=== PATIENT | male | born 1965 | race Hispanic/Latino ===

== ENCOUNTER 2021-09-07 09:11 | Emergency (ER) | payer OTHER ==
--- OUTSIDE RECORDS SUMMARY | 2021-09-07 09:14 | XMS REPORT | Continuity of Care Document ---
:1965 Author Organization [facility] t Address [address] [place] [address] Dr. Guzman [address] [place] [id number] Care Team Providers Name Role Phone Bui_Q Attending Clinician Unavailable Bui_Q_WAGDNU Attending Clinician Unavailable Bui_Q Admitting Clinician Unavailable Bui_Q_WAGDNU Admitting Clinician Unavailable Payers Payer Name Policy Type Policy Number Effective Date Expiration Date Radha BEE [place] - [id number] [facility] 4 ([facility]) Problems Condition Condition Condition Status Onset Resolution Last Treating Co mments Source Name Details Category Date Date Treatment Clinician Date Osteoarthr Osteoarthr Problem Active [facility] itis itis 9- Family 00:00: Practic 00 e History of History of Problem Active [facility] calculus Calculus 4- Family of kidney of Kidney 00:00: Prac tic 00 e Dyslipidem Dyslipidem Problem Active [facility] ia ia 6- Family 00:00: Practic 00 e Benign Benign Problem Active [facility] prostatic Prostatic 6-11 Fami ly hyperplasi Hyperplasi 00:00: Pr actic a without a without 00 e outflow Outflow obstructio Obstructio n n Diabetes Diabetes Problem Active [facility] mellitus Mellitus 2-26 Family 00:00: Practic 00 e Hypertensi Hypertensi Problem Active [facility] ve ve 2-26 Family disorder Disorder 00:00: Practi c 00 e Allergies, Adverse Reactions, Alerts This patient has no known allergies or adverse reactions. Social History Smoking Status Start Date Stop Date Source Never Smoker [facility] Medications Ordered Filled Start Stop Current Ordering Indication Dosage Frequency Signature Comments Components Source Medication Medication Date Date Medication? Clinician (SIG) Name Name atorvastati atorvastati No atorvastat [facility] n 10 mg n 10 mg in 10 mg Famil y tablet TAKE tablet TAKE tablet Practic 1 TABLET BY 1 TABLET BY TAKE 1 e MOUTH EVERY MOUTH EVERY TABLET BY DAY DAY MOUTH EVERY DAY lisinopril lisinopril No lisinopril [facility] 20 20 20 Family mg-hydrochl mg-hydrochl mg-hydroch Practic orothiazide orothiazide lorothiazi e 25 mg 25 mg de 25 mg tablet TAKE tablet TAKE tablet 1 TABLET BY 1 TABLET BY TAKE 1 MOUTH EVERY MOUTH EVERY TABLET BY DAY DAY MOUTH EVERY DAY meloxicam meloxicam No meloxicam [facility] 15 mg 15 mg 15 mg Family tablet TAKE tablet TAKE tablet Practic 1 TABLET BY 1 TABLET BY TAKE 1 e MOUTH EVERY MOUTH EVERY TABLET BY DAY DAY MOUTH NEEDED NEEDED EVERY DAY NEEDED metformin metformin No metformin [facility] 1,000 mg 1,000 mg 1,000 mg Fam vanessa tablet TAKE tablet TAKE tablet Practic 1 TABLET BY 1 TABLET BY TAKE 1 e MOUTH TWICE MOUTH TWICE TABLET BY A DAY A DAY MOUTH TWICE A DAY metoprolol metoprolol No 1 Q1D metoprolol [facility] succinate succinate succinate Family ER 25 mg ER 25 mg ER 25 mg Pra ctic tablet,exte tablet,exte tablet,ext e nded nded ended release 24 release 24 release 24 hr Take 1 hr Take 1 hr Take 1 tablet tablet tablet every day every day every day by oral by oral by oral route. route. route. tamsulosin tamsulosin No tamsulosin [facility] 0.4 mg 0.4 mg 0.4 mg Family capsule capsule capsule Practi c TAKE 1 TAKE 1 TAKE 1 e CAPSULE BY CAPSULE BY CAPSULE BY MOUTH EVERY MOUTH EVERY MOUTH DAY DAY EVERY DAY triamcinolo triamcinolo No triamcinol [facility] ne ne one Family acetonide acetonide acetonide Practic 0.1 % 0.1 % 0.1 % e dental dental dental paste APPLY paste APPLY paste A SMALL DAB A SMALL DAB APPLY A WITH A WITH A SMALL DAB COTTON TIP COTTON TIP WITH A 2 3 TIMES A 2 3 TIMES A COTTON TIP DAY DAY 2 3 TIMES NEEDED NEEDED A DAY NEEDED Immunizations Ordered Immunization Filled Immunization Date Status Commen ts Source Name Name COVID-19, mRNA, COVID-19, mRNA, 2021-06-18 Completed [facility] LNP-S, PF, 30 mcg/0.3 LNP-S, PF, 30 mcg/0.3 00:00:00 Practice mL dose mL dose ([email or web address] (Moo[employer]ella) zoster recombinant zoster recombinant 2021-05-09 Completed [facility] 16:54:03 Practice influenza, influenza, 2021-02-24 Completed [facility] recombinant, recombinant, 11:52:00 Practice quadrIvalent,injectab quadrIvalent,injectab le, preservative free le, preservative free zoster recombinant zoster recombinant 2021-02-24 Completed [facility] 11:51:00 Practice COVID-19 (SARS-COV-2) COVID-19 (SARS-COV-2) 2020-10-18 Completed [facility] vaccine, unspecified vaccine, unspecified 00:00:00 Practice COVID-19 (SARS-COV-2) COVID-19 (SARS-COV-2) 2020-09-16 Completed [facility] vaccine, unspecified vaccine, unspecified 00:00:00 Practice influenza, influenza, 2020-03-23 Completed [facility] injectable, injectable, 00:00:00 Practice quadrivalent quadrivalent influenza, influenza, 2019-02-16 Completed [facility] injectable, injectable, 00:00:00 Practice quadrivalent quadrivalent Tdap Tdap 2018-05-27 Completed [facility] 19:05:46 Practice influenza, influenza, 2018-02-16 Completed [facility] unspecified unspecified 00:00:00 Practice formulation formulation pneumococcal pneumococcal 2017-02-16 Completed [facility] polysaccharide PPV23 polysaccharide PPV23 00:00:00 Practice influenza, influenza, 2017-02-16 Completed [facility] unspecified unspecified 00:00:00 Practice formulation formulation Vital Signs Vital Name Observation Time Observation Value Comments Source BP Diastolic 2021-08-23 00:00:00 89 mm[Hg] [facility] Height 2021-08-23 00:00:00 67 [in_i] [facility] BMI (Body Mass 2021-08-23 00:00:00 31.5 kg/m2 [facility] BP Systolic 2021-08-23 00:00:00 150 mm[Hg] [facility] Body Weight 2021-08-23 00:00:00 201 [lb_av] [facility] BP Diastolic 2021-02-24 00:00:00 75 mm[Hg] [facility] Height 2021-02-24 00:00:00 67 [in_i] [facility] BMI (Body Mass 2021-02-24 00:00:00 30.2 kg/m2 [facility] BP Systolic 2021-02-24 00:00:00 132 mm[Hg] [facility] Body Weight 2021-02-24 00:00:00 193 [lb_av] [facility] BP Diastolic 2020-10-21 00:00:00 85 mm[Hg] [facility] Height 2020-10-21 00:00:00 67 [in_i] [facility] BMI (Body Mass 2020-10-21 00:00:00 30.9 kg/m2 [facility] BP Systolic 2020-10-21 00:00:00 161 mm[Hg] [facility] Body Weight 2020-10-21 00:00:00 197.3 [lb_av] [facility] BP Diastolic 2020-05-18 00:00:00 89 mm[Hg] [facility] Height 2020-05-18 00:00:00 67 [in_i] [facility] BMI (Body Mass 2020-05-18 00:00:00 30.9 kg/m2 [facility] BP Systolic 2020-05-18 00:00:00 154 mm[Hg] [facility] Body Weight 2020-05-18 00:00:00 197 [lb_av] [facility] Height 2020-01-27 00:00:00 67 [in_i] [facility] BP Diastolic 2019-07-15 00:00:00 79 mm[Hg] [facility] Height 2019-07-15 00:00:00 67 [in_i] [facility] BMI (Body Mass 2019-07-15 00:00:00 32.5 kg/m2 [facility] BP Systolic 2019-07-15 00:00:00 125 mm[Hg] [facility] Body Weight 2019-07-15 00:00:00 207.4 [lb_av] [facility] BP Diastolic 2018-12-30 00:00:00 72 mm[Hg] [facility] Height 2018-12-30 00:00:00 67 [in_i] [facility] BMI (Body Mass 2018-12-30 00:00:00 30.4 kg/m2 [facility] BP Systolic 2018-12-30 00:00:00 124 mm[Hg] [facility] Body Weight 2018-12-30 00:00:00 194 [lb_av] [facility] BP Diastolic 2018-09-16 00:00:00 60 mm[Hg] [facility] Height 2018-09-16 00:00:00 67 [in_i] [facility] BMI (Body Mass 2018-09-16 00:00:00 31 kg/m2 [facility] Index) Practice BP Systolic 2018-09-16 00:00:00 126 mm[Hg] [facility] Body Weight 2018-09-16 00:00:00 197.8 [lb_av] [facility] Procedures Procedure Date / Time Performed Performing Clinician [facility] e X-RAY OF ABDOMEN 1 2018-09-16 00:00:00 [facility] amil VIEW Practice Tooth Root Removal [facility] Practice Plan of Care Planned Activity Planned Date Details Comments Source Diagnostic Test 2021-08-23 hemoglobin A1C, [facility] mathew Pending 00:00:00 fingerstick [code = Practice hemoglobin A1C, fingerstick] Future Scheduled Test Your labs are normal [facility] except... 1. Your Practice Diabetes is controlled. Take your meds. I recommend low carb / sugar diet and walking. I will monitor. [code = Your labs are normal except... 1. Your Diabetes is controlled. Take your meds. I recommend low carb] Future Appointment 2022-02-21 Jose Juan Call, [address] [facility] 09:15:00 [place]; Practice [address], [place] [address] [facility] Encounters Start End Encounter Admission Attending Care Care Encounter Source Date/Time Date/Time Type Type Clinicians Facility Department ID 2021-08-23 2021-08-23 Outpatient Bui_Q VFP VFP [id number] [facility] 11:15:00 11:15:00 [id number] Family Practic e 2021-08-23 2021-08-23 Outpatient Bui_Q VFP VFP [id number] [facility] 11:15:00 11:15:00 [id number] Family Practic e 2021-08-23 2021-08-23 Jose Juan Marquez VFP [place] - [id number] [facility] 00:00:00 00:00:00 MD Jakub: [facility] [address] Medical - Practi c Shadow Dora ascencio [facility], [address], [place] [address] , Ph. 2021-06-07 2021-06-07 Outpatient Bui_Q VFP VFP [id number] [facility] 11:15:00 11:15:00 [id number] Family Practic e 2021-06-07 2021-06-07 Outpatient Bui_Q VFP VFP [id number] [facility] 11:15:00 11:15:00 [id number] Family Practic e 2021-05-21 2021-05-21 Outpatient Bui_Q VFP VFP [id number] [facility] 05:20:00 05:20:00 [id number] Family Practic e 2021-05-04 2021-05-04 Outpatient Bui_Q VFP VFP [facility] 08:59:00 08:59:00 [id number] Family Practic e 2021-05-03 2021-05-03 Outpatient Bui_Q VFP VFP [facility] 10:12:00 10:12:00 [id number] Family Practic e 2021-05-03 2021-05-03 Emily O VFP [place] - [id number] [facility]:00:00 [facility] [place] [id number] Medical - Prac tic Shadow Dora ascencio [facility], [facility] [address] [address] , Ph. 2021-04-16 2021-04-16 Outpatient Bui_Q_WAGDN VFP VFP [id number] [facility] 03:32:00 03:32:00 U [id number] Family Practic e 2021-04-16 2021-04-16 Outpatient Bui_Q VFP VFP [id number]- [facility] 03:32:00 03:32:00 [id number] Family Practic e 2021-03-12 2021-03-12 Outpatient Bui_Q VFP VFP [id number] [facility] 03:00:00 03:00:00 [id number] Family Practic e 2021-03-12 2021-03-12 Outpatient Bui_Q_WAG VFP VFP [id number] [facility] 03:00:00 03:00:00 [id number] Family Practic e 2021-03-01 2021-03-01 Outpatient Bui_Q_WAG VFP VFP [id number] [facility] 05:07:00 05:07:00 [id number] Family Practic e 2021-02-24 2021-02-24 Outpatient Bui_Q VFP VFP [facility] 11:51:00 11:51:00 [id number] Family Practic e 2021-02-24 2021-02-24 Jose Juan Marquez VFP [place] - [id number] [facility] 00:00:00 00:00:00 MD Jakub: [facility] [address] Medical - Practi c Shadow VM_HOU_Shad e [place] [facility], [address], [place] [address] , Ph. 2021-01-20 2021-01-20 Outpatient Bui_Q_WAG VFP VFP [id number] [facility] 01:17:00 01:17:00 [id number] Family Practic e 2021-01-20 2021-01-20 Outpatient Bui_Q VFP VFP [facility] 01:17:00 01:17:00 [id number] Family Practic e 2021-01-20 2021-01-20 Outpatient Bui_Q VFP VFP [facility] 01:17:00 01:17:00 [id number] Family Practic e 2020-12-16 2020-12-16 Outpatient Bui_Q_WAG VFP VFP [id number] [facility] 02:10:00 02:10:00 [id number] Family Practic e 2020-11-12 2020-11-12 Outpatient Bui_Q_WAG VFP VFP [id number] [facility] 01:02:00 01:02:00 [id number] Family Practic e 2020-10-26 2020-10-26 Outpatient Bui_Q_WAG VFP VFP [id number] [facility] 04:57:00 04:57:00 [id number] Family Practic e 2020-10-26 2020-10-26 Outpatient Bui_Q VFP VFP [id number]- [facility] 04:57:00 04:57:00 [id number] Family Practic e 2020-10-26 2020-10-26 Outpatient Bui_Q VFP VFP [facility] 04:57:00 04:57:00 [id number] Family Practic e 2020-10-25 2020-10-25 Outpatient Bui_Q VFP VFP [id number] [facility] 07:36:00 07:36:00 [id number] Family Practic e 2020-10-21 2020-10-21 Outpatient Bui_Q VFP VFP [facility] 01:43:00 01:43:00 [id number] Family Practic e 2020-10-21 2020-10-21 Jose Juan Marquez VFP [place] - [id number] [facility] 00:00:00 00:00:00 MD Jakub: [facility] [address] Medical - Practi c Shadow VM_HOU_Shad e [place] ow [facility], [address], [place] [address] , Ph. 2020-08-17 2020-08-17 Outpatient Bui_Q_WAG VFP VFP [id number] [facility] 01:02:00 01:02:00 [id number] Family Practic e 2020-08-17 2020-08-17 Outpatient Bui_Q_WAG VFP VFP [id number] [facility] 01:02:00 01:02:00 [id number] Family Practic e 2020-07-13 2020-07-13 Outpatient Bui_Q_WAG VFP VFP [id number] [facility] 01:03:00 01:03:00 [id number] Family Practic e 2020-06-08 2020-06-08 Outpatient Bui_Q_WAG VFP VFP [id number] [facility] 01:03:00 01:03:00 [id number] Family Practic e 2020-05-20 2020-05-20 Outpatient Bui_Q_WAG VFP VFP [id number] 7202 [facility] 07:36:00 07:36:00 [id number] Family Practic e 2020-05-18 2020-05-18 Outpatient Bui_Q VFP VFP [id number] [facility] 10:26:00 10:26:00 [id number] Family Practic e 2020-05-18 2020-05-18 Porchae B VFP [place] - [id number] [facility] 00:00:00 00:00:00 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 [address], ([facility]) [place] [address] , Ph. 2020-05-04 2020-05-04 Outpatient Bui_Q_WAG VFP VFP [id number] [facility] 01:02:00 01:02:00 [id number] Family Practic e 2020-05-04 2020-05-04 Outpatient Bui_Q VFP VFP [id number] [facility] 01:02:00 01:02:00 [id number] Family Practic e 2020-03-30 2020-03-30 Outpatient Bui_Q_WAG VFP VFP [id number] [facility] 01:03:00 01:03:00 [id number] Family Practic e 2020-03-30 2020-03-30 Outpatient Bui_Q_WAG VFP VFP [id number] [facility] 01:03:00 01:03:00 [id number] Family Practic e 2020-02-23 2020-02-23 Outpatient Bui_Q_WAG VFP VFP [id number] [facility] 11:48:00 11:48:00 [id number] Family Practic e 2020-01-29 2020-01-29 Outpatient Bui_Q_WAG VFP VFP [id number] [facility] 07:49:00 07:49:00 [id number] Family Practic e 2020-01-29 2020-01-29 Outpatient Bui_Q VFP VFP [id number] [facility] 07:49:00 07:49:00 [id number] Family Practic e 2020-01-27 2020-01-27 Outpatient Bui_Q_WAG VFP VFP [id number] [facility] 02:03:00 02:03:00 [id number] Family Practic e 2020-01-27 2020-01-27 Jose Juan Marquez VFP [place] - [id number] [address] [place] [address] 00:00:00 00:00:00 MD Jakub: [facility] Famil y 6122 Medical - Practi c [facility] [address], ([facility]) [place] [address] , Ph. 2019-07-18 2019-07-18 Outpatient Bui_Q VFP VFP [id number] [facility] 02:00:00 02:00:00 [id number] Family Practic e 2019-07-18 2019-07-18 Outpatient Bui_Q VFP VFP [id number] [facility] 02:00:00 02:00:00 [id number] Family Practic e 2019-07-18 2019-07-18 Outpatient Bui_Q_WAG VFP VFP [id number] [facility] 02:00:00 02:00:00 [id number] Family Practic e 2019-07-15 2019-07-15 Outpatient Bui_Q_WAG VFP VFP [id number] [facility] 02:08:00 02:08:00 [id number] Family Practic e 2019-07-15 2019-07-15 Jose Juan Marquez VFP [place] - [id number] [facility] 00:00:00 00:00:00 MD Jakub: [facility] Famil y 6122 [facility] [address], ([facility]) [place] [address] , Ph. 2019-06-18 2019-06-18 Outpatient Bui_Q VFP VFP [id number] [facility] 04:39:00 04:39:00 [id number] Family Practic e 2019-04-24 2019-04-24 Outpatient Bui_Q_WAG VFP VFP [id number] [facility] 02:47:00 02:47:00 [id number] Family Practic e 2018-12-30 2018-12-30 Jose Juan Marquez VFP [place] - [id number] [address] [place] [address] 00:00:00 00:00:00 MD Jakub: [facility] Famil y 9430 Family Practic [place], Practice - e [address], [place] [address] , Ph. 2018-09-16 2018-09-16 Jose Juan Marquez VFP [place] - [id number] [facility] 00:00:00 00:00:00 MD Jakub: [facility] Famil y 9430 Family Practic [place], Practice - e [address], [place] [address] , Ph. Results This patient has no known results.
[2021-09-07] MEDS ORDERED: MORPHINE 4 MG/ML SYR ONE (10:02)
[2021-09-07] MEDS ORDERED: ONDANSETRON 4 MG/2 ML VIAL ONE (10:02)
[2021-09-07] MEDS ORDERED: dexAMETHasone 10 MG/ML VIAL ONE (10:02)
[2021-09-07 10:04] LABS: Absolute Lymphocytes (CBC) 1.9 K/uL (0.7-4.9); Hematocrit 40.1 % (39.6-49.0); Lymphocytes % 21.2 % (15.3-44.8); MPV 7.5 fL (7.6-11.3); RBC Red Blood Cell Count 4.74 M/uL (4.33-5.43)
--- NOTE | 2021-09-07 10:11 | RAD REPORT ---
EXAM DESCRIPTION: CT - Stone Protocol - 09/07/2021 9:40 am CLINICAL HISTORY: Flank pain. right flank pain, hx of kidney stone COMPARISON: Abdomen W Contrast dated 08/29/2021No comparisons TECHNIQUE: Axial images were obtained without oral or IV contrast. Lack of contrast limits solid org an and vascular assessment. The [id number] spans the entirety of the system partially obscuring uppermost abdomen and lung bases. Coronal reformatted images were obtained and reviewed. All CT scans are performed using dose optimization technique as appropriate and may include automated exposure control or mA/KV adjustment according to patient size. FINDINGS: The lower lung davidson are clear. Imaged portions of the liver and spleen show no suspicious findings on non-contrast imaging. The panc reas and adrenal glands are normal. No pathologic lymphadenopathy in the abdomen or pelvis. No urinary tract stones or obstructive uropathy. No bowel obstruction, free air, free fluid or abscess. Normal appendix noted. No significant bony abnormality. Moderate fat containing umbilical hernia. IMPRESSION: No urinary tract stones or obstructive uropathy. Moderate fat containing umbilical hernia.
[2021-09-07 10:17] LABS: BUN Blood Urea Nitrogen 17 mg/dL (7-18); Bicarbonate 29 mmol/L (21-32); Glucose Level 135 mg/dL (74-106); Sodium Level 139 mmol/L (136-145)
--- NOTE | 2021-09-07 10:29 | ER ---
Nurse's Notes [facility] Name: Daniel Soto Age: 56 yrs Sex: Male : 1965 Arrival Date: 09/07/2021 Time: 09:16 Bed 15 Private MD: Diagnosis: Radiculopathy, lumbosacral region Presentation: 09/07 09:29 Chief complaint: Patient states: R sided back pain since Sunday. No trauma or falls. ll1 Slight cough/congestion for 1 week. No fever. Coronavirus screen: Vaccine status: Patient reports receiving the 2nd dose of the covid vaccine. Client denies travel out of the [place] in the last 14 days. congestion, cough unrelated to allergies, Client presents with at least one sign or symptom that may indicate coronavirus-19. Standard/surgical mask placed on the client. Ebola Screen: Patient denies travel to an Ebola-affected area in the 21 days before illness onset. Initial Sepsis Screen: Does the patient meet any 2 criteria? No. Patient's initial sepsis screen is negative. Does the patient have a suspected source of infection? Yes: Bone or joint infection. Risk Assessment: Do you want to hurt yourself or someone else? Patient reports no desire to harm self or others. Onset of symptoms was September 03, 2021. 09:29 Method Of Arrival: Wheelchair ll1 09:29 Acuity: KENDY 4 ll1 Triage Assessment: 09:31 General: Appears uncomfortable, Behavior is calm, cooperative, appropriate for age. ll1 Pain: Complains of pain in R side of back Quality of pain is described as aching, Aggravated by increased activity. EENT: Reports nasal congestion. Respiratory: Reports cough that is. Musculoskeletal: Circulation, motion, and sensation intact. Capillary refill < 3 seconds, Reports pain in R side of back. Historical: - Allergies: 09:28 No Known Allergies; ll1 - PMHx: :28 Diabetes - NIDDM; Hyperlipidemia; Hypertension; ll1 - PSHx: :28 None; ll1 - Immunization history:: Client reports receiving the 2nd dose of the Covid vaccine. - Social history:: Smoking status: Patient denies any tobacco usage or history of. - Family history:: not pertinent. - Hospitalizations: : No recent hospitalization is reported. Screenin:30 Abuse screen: Denies threats or abuse. Denies injuries from another. Nutritional cb5 screening: No deficits noted. Nutritional screening: No deficits noted. Tuberculosis screening: No symptoms or risk factors identified. 09:30 Fall Risk None identified. cb5 Assessment: 09:25 General: Appears uncomfortable, well groomed, Behavior is calm, cooperative, cb5 appropriate for age. Pain: Complains of pain in right low back Pain currently is 5 out of 10 on a pain scale. Neuro: No deficits noted. Level of Consciousness is awake, alert, obeys commands, Oriented to person, place, time. Cardiovascular:. Respiratory: No deficits noted. GI: No deficits noted. : No deficits noted. EENT: No deficits noted. Derm: No deficits noted. Musculoskeletal: Reports pain in right low back. 10:30 Pain: Complains of pain in right low back Pain currently is 3 out of 10 on a pain scale.cb5 11:00 Pain: Complains of pain in right low back Pain currently is 3 out of 10 on a pain scale.cb5 Vital Signs: 09:29 BP 151 / 70; Pulse 71; Resp 16; Temp 97.4; Pulse Ox 98% ; Pain 10/10; ll1 ED Course: 09:16 Patient arrived in ED. kz 09:22 Ravi Talley MD is Attending Physician. rn 09:23 Arm band placed on Patient placed in an exam room, on a stretcher. ll1 09:30 Bed in low position. Call light in reach. Side rails up X2. cb5 09:31 Triage completed. ll1 09:40 CT Stone Protocol In Process Unspecified. EDMS 09:42 Kaila Apodaca, HUMBERTO is Primary Nurse. cb5 09:56 Basic Metabolic Panel Sent. cb5 11:07 No provider procedures requiring assistance completed. cb5 Administered Medications: 09:59 Drug: Zofran (Ondansetron) 4 mg Route: IVP; Site: right antecubital; cb5 10:00 Drug: morphine 4 mg Route: IVP; Site: right antecubital; cb5 10:00 Drug: Decadron - Dexamethasone 10 mg Route: IVP; Site: right antecubital; cb5 10:43 Drug: Ketorolac 15 mg Route: IVP; Site: right antecubital; cb5 Outcome: 10:28 Discharge ordered by MD. hein 11: Discharged to home cb5 11: Condition: stable 11: Discharge instructions given to patient. 11:07 Patient left the ED. 5 Signatures: Dispatcher [employer] Ravi Gillespie MD MD rn Lewis, Lynsay RN RN ll1 Kaila Apodaca RN RN cb5 Aicha Ag
--- NOTE | 2021-09-07 10:29 | EDPHYS ---
Physician Documentation [facility] Name: Daniel Soto Age: 56 yrs Sex: Male : 1965 Arrival Date: 09/07/2021 Time: 09:16 Bed 15 Private MD: ED Physician Ravi Talley HPI: 09/07 10:23 This 56 yrs old Male presents to ER via Wheelchair with complaints of Back rn Pain. 10:23 The patient presents with pain that is acute. The symptoms are located in the low back, rn right low back. Onset: The symptoms/episode began/occurred 5 day(s) ago. The pain does not radiate. Associated signs and symptoms: Pertinent negatives: abdominal pain, chest pain, dysuria, fever, hematuria, incontinence, numbness, tingling, urinary retention, vomiting, weakness. Modifying factors: The patient symptoms are alleviated by remaining still, the patient symptoms are aggravated by any movement, coughing. Severity of symptoms: At their worst the symptoms were moderate, in the emergency department the symptoms are unchanged. The patient has not experienced similar symptoms in the past. The patient has not recently seen a physician. Pt reports right lower back pain that began approx 5 days ago, no injury or fall. Reports worse with twisting and movement. Also had a mild cough that worsens back pain as well. No urinary symptoms. Does have hx of kidney stone. + some radiation to right lower extremity. . Historical: - Allergies: 09:28 No Known Allergies; ll1 - PMHx: 09:28 Diabetes - NIDDM; Hyperlipidemia; Hypertension; ll1 - PSHx: 09:28 None; ll1 - Immunization history:: Client reports receiving the 2nd dose of the Covid vaccine. - Social history:: Smoking status: Patient denies any tobacco usage or history of. - Family history:: not pertinent. - Hospitalizations: : No recent hospitalization is reported. ROS: 10:23 Constitutional: Negative for fever, chills, and weight loss, Eyes: Negative for injury, rn pain, redness, and discharge, Neck: Negative for injury, pain, and swelling, Cardiovascular: Negative for chest pain, palpitations, and edema, Respiratory: Negative for shortness of breath, cough, wheezing, and pleuritic chest pain, Abdomen/GI: Negative for abdominal pain, nausea, vomiting, diarrhea, and constipation, Back: + right lower back pain : Negative for injury, bleeding, discharge, and swelling, MS/Extremity: Negative for injury and deformity, Skin: Negative for injury, rash, and discoloration, Neuro: Negative for headache, weakness, numbness, tingling, and seizure. Exam: 10:23 Constitutional: This is a well developed, well nourished patient who is awake, alert, rn appears uncomfortable Cardiovascular: Regular rate and rhythm. No pulse deficits. Respiratory: No increased work of breathing, no retractions or nasal flaring. Abdomen/GI: soft, non-tender Back: No spinal tenderness. Skin: Warm, dry with normal turgor. Normal color with no rashes, no lesions, and no evidence of cellulitis. MS/ Extremity: Pulses equal, no cyanosis. Neurovascular intact. Full, normal range of motion. Equal circumference. Neuro: Awake and alert, GCS 15, oriented to person, place, time, and situation. Motor strength 5/5 in all extremities. Sensory grossly intact. Vital Signs: 09:29 BP 151 / 70; Pulse 71; Resp 16; Temp 97.4; Pulse Ox 98% ; Pain 10/10; ll1 MDM: 09:22 Patient medically screened. rn 10:23 Differential diagnosis: arthritis, Osteoarthritis sprain, Ureterolithiasis rn radiculopathy, disc problem. Data reviewed: vital signs, nurses notes, lab test result(s), radiologic studies, and as a result, I will discharge patient. Counseling: I had a detailed discussion with the patient and/or guardian regarding: the historical points, exam findings, and any diagnostic results supporting the discharge/admit diagnosis, lab results, radiology results, the need for outpatient follow up, to return to the emergency department if symptoms worsen or persist or if there are any questions or concerns that arise at home. Response to treatment: the patient's symptoms have mildly improved after treatment, and as a result, I will discharge patient. Special discussion: I discussed with the patient/guardian in detail that at this point there is no indication for admission to the hospital. It is understood, however, that if the symptoms persist or worsen the patient needs to return immediately for re-evaluation. 09/07 09:30 Order name: CBC with Diff; Complete Time: 10:15 rn 09/07 09:30 Order name: Basic Metabolic Panel; Complete Time: 10:22 rn 09/07 09:30 Order name: CT Stone Protocol; Complete Time: 10:15 rn 09/07 09:30 Order name: IV Start; Complete Time: 09:56 rn 09/07 09:30 Order name: Urine Dipstick-Ancillary (obtain specimen) rn Administered Medications: 09:59 Drug: Zofran (Ondansetron) 4 mg Route: IVP; Site: right antecubital; cb5 10:00 Drug: morphine 4 mg Route: IVP; Site: right antecubital; cb5 10:00 Drug: Decadron - Dexamethasone 10 mg Route: IVP; Site: right antecubital; cb5 10:43 Drug: Ketorolac 15 mg Route: IVP; Site: right antecubital; cb5 Disposition Summary: 09/07/21 10:28 Discharge Ordered Location: Home rn Problem: new rn Symptoms: have improved rn Condition: Stable rn Diagnosis - Radiculopathy, lumbosacral region rn Followup: rn - With: Private Physician - When: As needed - Reason: Recheck today's complaints, Re-evaluation by your physician Discharge Instructions: - Discharge Summary Sheet rn - Lumbosacral Radiculopathy rn - Back Exercises rn - Form - Return To Work ss Forms: - Medication Reconciliation Form rn - Thank You Letter rn - Antibiotic internal controls specialist - Prescription Opioid Use rn - Work release form ss Prescriptions: - Ultram 50 mg Oral Tablet - take 1 tablet by ORAL route every 6 hours As needed; 12 tablet; Refills: 0, rn Product Selection Permitted - Cyclobenzaprine 10 mg Oral Tablet - take 1 tablet by ORAL route every 8 hours As needed; 10 tablet; Refills: 0, rn Product Selection Permitted - Medrol (Jovani) 4 mg Oral Tablets, Dose Pack - take 1 tablet by ORAL route as directed - follow package instructions; 1 rn packet; Refills: 0, Product Selection Permitted Signatures: Dispatcher [employer] Ravi Gillespie MD MD rn Lewis, Lynsay RN RN ll1 Kaila Apodaca, RN RN cb5
[2021-09-07] MEDS ORDERED: KETOROLAC 30 MG/ML INJ ONE (10:45)
[2021-09-07 11:23] VITALS: BP 151/70; TEMP 97.4; O2SAT 98
== END 2021-09-07 11:07 | disposition home or self-care (01) ==
LOC: ER 09:11
DX: M54.17 Radiculopathy, lumbosacral region (principal); E11.9 Type 2 diabetes mellitus without complications; I10 Essential (primary) hypertension
CPT/HCPCS: 85025; 80048; 36415; 76377; 74176; 96375; 96374; 99283; J1100; J2405